=== PATIENT | male | born 1950 | race Caucasian/White ===

== ENCOUNTER 2019-10-17 13:35 | Inpatient (IN) | payer MEDICARE, OTHER ==
[~2019-10-17] VITALS: Ht 172.7 cm; Wt 74.8 kg
[2019-10-17] MEDS ORDERED: ACETAMINOPHEN 325 MG TABLET PO ONE (14:00)
--- NOTE | 2019-10-17 14:02 | NUR ---
TECH AT BEDSIDE FOR EKG
[2019-10-17] MEDS ORDERED: ACETAMINOPHEN 325 MG TABLET ONE (14:04)
--- NOTE | 2019-10-17 14:20 | NUR ---
BIBWIFE FROM HOME TO ER BED 5. AAOX4. NOT IN RESP DISTRESS, BRETHING EVEN AND UNLABORED. AMBUALTORY. CAME IN FOR FEVER X 3 DAYS. TEMP NOTED AT 100.7 ORALLY. PT DENIED TAKING ANY MEDS FOR FEVER. DENIES CP NOR ANY OTHER PAIN. NO COUGH. DENIES PAIN UNPON URINATION NOT ABDOMINAL PAIN. MD WAS AT THE BEDSIDE FOR EVAL. ORDERS RECEIVED NOTED AND CARRIED OUT. IV LINE ESTABLISHE ON L AC 18G. BLOOD DRAWN AND GIVEN TO [employer] ENGINEER AT BEDSIDE. URINE COLLECTED AND SENT TO LAB
[2019-10-17 14:25] LABS: APPEARANCE,URINE CLEAR (CLEAR); BILIRUBIN,URINE NEGATIVE (NEGATIVE); BLOOD, URINE TRACE-INTA Ery/uL (NEGATIVE); COLOR,URINE YELLOW (YELLOW); KETONES,URINE NEGATIVE (NEGATIVE); LEUKOCYTE ESTERASE ,URINE NEGATIVE (NEGATIVE); NITRITE, URINE NEGATIVE (NEGATIVE); PH,URINE 5.5 (5.0-8.0); PROTEIN,URINE 30 mg/dl (NEGATIVE); UGLUCOSE NEGATIVE (NEGATIVE); UROBILINOGEN,URINE 0.2 EU/dL (0.2)
[2019-10-17 14:30] LABS: BASOPHILS % (AUTO) 0.3 % (0.0-2.0); HEMATOCRIT 43 % (39-51); HEMOGLOBIN 14.2 g/dL (13.5-17.5); LYMPHOCYTES # (AUTO) 1.1 /CMM (0.8-4.8); MEAN CORPUSCULAR HGB CONC 33 g/dl (31.0-36.0); MEAN CORPUSCULAR VOLUME 89 fL (80-96); MONOCYTES # (AUTO) 0.4 /CMM (0.1-1.30); MONOCYTES % (AUTO) 10.4 % (2.0-12.0); NEUTROPHILS # (AUTO) 2.2 /CMM (1.8-8.9); NEUTROPHILS % (AUTO) 59.3 % (43.0-81.0); PLATELET COUNT (AUTO) 94 /CMM (150-450); RED BLOOD CELL COUNT(AUTO) 4.81 MIL/uL (4.5-6.0); WHITE BLOOD COUNT (AUTO) 3.7 K/uL (4.3-11.0)
[2019-10-17 14:46] LABS: BACTERIA,URINE Rare /HPF (None Seen); SQUAMOUS EPITHELIAL CELL,UR 0-2 /HPF (None Seen); WBC,URINE 0-2 /HPF (0-3)
--- NOTE | 2019-10-17 14:49 | NUR ---
COVID SWAB DONE AND SENT TO LAB
[2019-10-17 15:07] LABS: CALCIUM, SERUM 8.1 mg/dL (8.5-10.1); CREATININE 1.1 mg/dL (0.6-1.3); POTASSIUM 3.3 mmol/L (3.5-5.1)
[2019-10-17 15:17] LABS: ALBUMIN 3.5 g/dL (3.4-5.0); BILIRUBIN,DIRECT 0.2 mg/dL (0.0-0.2); BILIRUBIN,TOTAL 0.6 mg/dL (0.2-1.0)
[2019-10-17] MEDS ORDERED: POTASSIUM CHLORIDE 20 MEQ TAB.PRT.SR PO ONE ×2 (16:30→16:47)
[2019-10-17 16:49] LABS: BAND % (MANUAL) 1 % (0.0-5.0); LYMPHOCYTES % (MANUAL) 26 % (16-48); MONOCYTES % (MANUAL) 9 % (0-11.0); NEUTROPHILS % (MANUAL) 60 (42-76); REACTIVE LYMPHOCYTES 4 % (0-0)
--- NOTE | 2019-10-17 16:56 | NUR ---
COVID RESULT: POSITIVE. RESULT RELAYED TO
[2019-10-17] MEDS ORDERED: ATOR40TA PO (17:21)
[2019-10-17] MEDS ORDERED: LOSA50TA39 PO (17:21)
[2019-10-17] MEDS ORDERED: HYDR12.55 PO (17:21)
[2019-10-17] MEDS ORDERED: MELO-107 PO (17:21)
[2019-10-17] MEDS ORDERED: ASPI-1420 PO (17:21)
--- NOTE | 2019-10-17 17:25 | NUR ---
CALLED [facility]. PEGGER WAS PAGED.
[2019-10-17] MEDS ORDERED: Z GUARD REMEDY 2 OZ OINT TP PRN (17:30)
[2019-10-17] MEDS ORDERED: ACETAMINOPHEN 325 MG TABLET PO PRN (17:30)
[2019-10-17] MEDS ORDERED: MAG HYDROX/AL HYDROX/SIMETH 30 ML UDC PO PRN (17:30)
[2019-10-17] MEDS ORDERED: HYDROCODONE/APAP 5/325MG TABLET PO PRN (17:30)
[2019-10-17] MEDS ORDERED: ONDANSETRON HCL/PF 4 MG/2 ML VIAL IVP PRN (17:30)
[2019-10-17] MEDS ORDERED: MAGNESIUM HYDROXIDE 30 ML UDC PO PRN (17:30)
[2019-10-17] MEDS ORDERED: ENOXAPARIN SODIUM 40 MG/0.4 ML DISP.SYRIN SQ SCH (17:30)
--- NOTE | 2019-10-17 17:32 | NUR ---
CALLED [facility] FOR TELE BED
--- NOTE | 2019-10-17 17:34 | NUR ---
BED 105 GIVEN
[2019-10-17 17:43] VITALS: BP 125/68
--- NOTE | 2019-10-17 17:43 | NUR ---
Patient does not wish to proceed with medical care recommended by Dr. Hilton Saha. Patient given information related to possible complications, up to and including , which could occur as a result of leaving the hospital at this time. Patient verbalizes understanding of risks involved due to leaving against medical advice. Patient has signed AMA form.
--- NOTE | 2019-10-17 17:52 | NUR ---
IV removed. Catheter intact and site benign. Pressure and 4x4 applied to site. No bleeding noted, Pt ambulatory with a steady gait
[2019-10-17] MEDS ORDERED: DEXAMETHASONE SOD PHOSPHATE 10 MG/ML VIAL IV SCH (18:00)
[2019-10-17] MEDS ORDERED: CEFTRIAXONE 1 G in IV D5W 50 ML IV SCH (18:00)
== END 2019-10-17 18:00 | disposition left against medical advice (07) | DRG 179 ==
LOC: ER 13:45 → TELE1 17:38
PROVIDERS: ADMIT Internal Medicine; ATTEND Internal Medicine
DX: U07.1 COVID-19 (principal); E87.6 Hypokalemia; D72.819 Decreased white blood cell count, unspecified; E78.5 Hyperlipidemia, unspecified
CPT/HCPCS: 36415; 71045-TC; 80048-TC; 80076-TC; 81000-TC; 83605-TC; 84484-TC; 85025-TC; 85730-TC; 86140-TC; 87040-TC; 87086-TC; C9803-CS; G0378; J0696; J7060